=== PATIENT | female | born 1990 | race African-American/Black ===

== ENCOUNTER 2020-04-16 17:53 | Observation (INO) ==
[2020-04-16 18:43] LABS: Basophils % 0.2 % (0.0-0.8); Hematocrit 29.1 VOL% (35.7-47.0); Hemoglobin 9.3 GM/DL (12.0-16.0); Immature Granulocytes % 0.6 %; Immature Granulocytes Absolute 0.13 #; Lymphocytes # 0.9 10*3/uL (1.4-4.0); Mean Corpuscular Volume 87.9 FL (87-102); Mean Platelet Volume 9.2 FL (9.6-12.0); Monocytes % 2.9 % (1.7-12.7); Neutrophils % 92.3 % (38.7-73.9); Platelet Count 515 T/CUMM (130-400); Red Blood Count 3.31 MC/CUMM (3.8-5.5); Red Cell Distribution Width 14.1 % (9.3-17.3); White Blood Count 21.6 T/CUMM (4-12)
[2020-04-16 20:14] LABS: Band Neutrophils 1 % (0-10); Lymphocytes 3 % (20-55); Segmented Neutrophils 96 % (50-85); Total Cells Counted 100
[2020-04-16 20:15] LABS: Platelet Estimate Increased
[2020-04-16] MEDS ORDERED: HYDROmorphone 2 MG/1 ML VIAL IV PRN (20:48)
[2020-04-16] MEDS ORDERED: diphenhydrAMINE 50 MG/1 ML VIAL IV PRN (20:48)
[2020-04-16] MEDS ORDERED: ONDANSETRON 4 MG/2 ML VIAL IV PRN ×2 (20:48→22:36)
[2020-04-16] MEDS ORDERED: PROMETHAZINE INJ 25 MG in SODIUM CHLORIDE 0.9% 50 ML IV PRN (20:48)
[2020-04-16] MEDS ORDERED: MEPERIDINE 25 MG/1 ML VIAL IV PRN (20:48)
[2020-04-16] MEDS ORDERED: MIDAZOLAM 2 MG/2 ML VIAL ONE (21:42)
[2020-04-16] MEDS ORDERED: fentaNYL 100 MCG/2 ML VIAL ONE (21:42)
[2020-04-16] MEDS ORDERED: FAMOTIDINE 20 MG/2 ML VIAL IV ONE (21:49)
[2020-04-16] MEDS ORDERED: ESTRADIOL 0.01% VAG CREAM 42.5 GM TUBE VAG ONE (22:18)
[2020-04-16] MEDS ORDERED: propofoL 200 MG/20 ML VIAL IV ONE (22:21)
[2020-04-16] MEDS ORDERED: ONDANSETRON 4 MG/2 ML VIAL ONE (22:21)
[2020-04-16] MEDS ORDERED: LACTATED RINGERS 1,000 ML IV ONE (22:21)
[2020-04-16] MEDS ORDERED: LIDOCAINE 2% 5 ML VIAL ONE (22:21)
[2020-04-16] MEDS ORDERED: ceFAZolin 1,000 MG VIAL ONE (22:22)
[2020-04-16] MEDS ORDERED: PHENYLEPHRINE 1 MG/10 ML SYRINGE IV ONE (22:23)
[2020-04-16] MEDS ORDERED: SEVOFLURANE 1 UNIT/15 MINUTE INH ONE (22:24)
[2020-04-16] MEDS ORDERED: BISACODYL 10 MG SUPP RECTAL PRN (22:36)
[2020-04-16] MEDS ORDERED: DOCUSATE SODIUM 100 MG CAPSULE PO PRN (22:36)
[2020-04-16] MEDS ORDERED: MAGNESIUM HYDROXIDE SUSP 30 ML UDCUP PO PRN (22:36)
[2020-04-16] MEDS ORDERED: ACETAMINOPHEN 325 MG TABLET PO PRN (22:36)
[2020-04-16] MEDS ORDERED: IBUPROFEN 800 MG TABLET PO PRN (22:36)
[2020-04-16] MEDS ORDERED: BENZOCAINE/MENTHOL LOZENGE 18/BOX PO PRN (22:36)
[2020-04-16] MEDS: LACTATED RINGERS 1,000 ML IV SCH (23:09)
[2020-04-16 23:27] LABS: Bilirubin,Urine Negative (Negative); Blood, Urine Moderate mg/dL (Negative); Glucose,Urine (UA) Negative (Negative); Ketones,Urine Negative (Negative); Mucus,Urine Occasional /LPF (Occasional); Nitrite,Urine Negative (Negative); Protein,Urine Negative; RBC,Urine 65 /HPF (0-4); Squamous Epithelial Cell,Urine Occasional /HPF (0-10); Urine Appearance CLEAR (Clear); Urine Color Yellow (Yellow); Urine Specific Gravity 1.019 (1.001-1.035); Urine Urobilinogen < 2.0 EU/DL (0.2-1.0); WBC,Urine 6 /HPF (0-6)
[2020-04-17] MEDS ORDERED: KETOROLAC 30 MG/1 ML VIAL IV PRN (01:04)
[2020-04-17] MEDS: LACTATED RINGERS 1,000 ML IV SCH ×2 (03:20→11:20)
[2020-04-17 06:57] LABS: Basophils % 0.2 % (0.0-0.8); Eosinophils # 0.2 10*3/uL (0.0-0.87); Eosinophils % 1.5 % (0.00-10.9); Hematocrit 24.2 VOL% (35.7-47.0); Hemoglobin 7.6 GM/DL (12.0-16.0); Immature Granulocytes % 0.5 %; Immature Granulocytes Absolute 0.06 #; Lymphocytes # 2.1 10*3/uL (1.4-4.0); Lymphocytes % 17.3 % (21.3-54.2); Mean Corpuscular HGB Conc 31.4 GM/DL (32-36); Mean Corpuscular Volume 89.3 FL (87-102); Mean Platelet Volume 9.2 FL (9.6-12.0); Monocytes % 8.5 % (1.7-12.7); Platelet Count 390 T/CUMM (130-400); Red Blood Count 2.71 MC/CUMM (3.8-5.5); Red Cell Distribution Width 14.6 % (9.3-17.3); White Blood Count 12.4 T/CUMM (4-12)
[2020-04-17 07:10] VITALS: BP 94/57
[2020-04-17 10:51] LABS: Hematocrit 23.6 VOL% (35.7-47.0); Hemoglobin 7.5 GM/DL (12.0-16.0)
[2020-04-17] MEDS ORDERED: FERROUS SULFATE 325 MG TABLET PO SCH (21:00)
[2020-04-18] MEDS ORDERED: MULTIVITAMIN (CENTRUM) TABLET PO SCH (09:00)
== END 2020-04-17 16:00 | disposition home or self-care (01) ==
LOC: EDUNIT# → EDBD → N.ED 17:53 → N.OB 21:11 → N.EDINP 21:18 → INTOOBSV 21:18 → N.OB 23:34
PROVIDERS: ADMIT Obstetrics & Gynecology; ATTEND Obstetrics & Gynecology